=== PATIENT | male | born 1960 | race Hispanic/Latino ===

== ENCOUNTER 2019-09-09 01:58 | Emergency (ER) | payer MEDICARE ==
[2019-09-09] MEDS ORDERED: MAGNESIUM SULFATE 2 GM/50 ML BAG IV ONE (02:02)
[2019-09-09] MEDS ORDERED: IPRATROPIUM 0.02% NEBU 2.5 ML IH ONE (02:02)
[2019-09-09] MEDS ORDERED: ALBUTEROL 2.5 MG/3 ML NEBU IH ONE (02:02)
--- NOTE | 2019-09-09 02:07 | Emergency Department Report ---
HPI - General Time Seen by Provider: 09/09/19 02:01 - HPI HPI: Room 1 The patient is a 58-year-old male present with a chief complaint of shortness of breath. The patient has a history of COPD and states approximately 1-2 hours prior to arrival he developed shortness of breath. Patient denies cough, rhinorrhea or fever. EMS found the patient with increased work of breathing and started him on CPAP. Patient was administered Solu-Medrol 125 mg IV x1. Patient denies chest pain ED Past Medical Hx - Past Medical History Hx Liver Disease: Yes (hepatitis B & C) Hx Arthritis: Yes Hx COPD: Yes (No home O2) Additional medical history: pneumonia - Surgical History Hx Appendectomy: Yes Additional Surgical History: back surgery x 3. spinal cord stimulator. Tonsillectomy - Family History Family history: no significant - Social History Smoking Status: Former Smoker (None x3 years) Substance Use Type: None (Denies illicit drug use) - Medications Home Medications: Home Medications Medication Instructions Recorded Confirmed Last Taken Type HYDROcodone/ACETAMINOPHEN 1 tab PO QID PRN 06/25/13 06/20/15 06/24/13 21:00 History [Hydrocodon-Acetaminophn 10-325] Ibuprofen [Motrin] 800 mg PO BID 06/25/13 06/20/15 Unknown History Morphine ER [Ms Contin ER] 15 mg PO QDAY 06/25/13 06/20/15 06/25/13 07:30 Hi story Albuterol INH(or & Nicu Only) 2 puff IH Q4H #1 inha 06/20/15 Unknown Rx [ProAir HFA Inhaler] Amlodipine Besylate [Norvasc] 2.5 mg PO DAILY 06/20/15 06/20/15 Unknown History HYDROcodone/APAP 10-325 [[place] 1 each PO Q6HR PRN #20 tablet 06/20/15 Unknown Rx 10/325] levoFLOXacin [Levaquin] 750 mg PO QDAY #7 tablet 06/20/15 Unknown Rx predniSONE [Deltasone] 40 mg PO QDAY #10 tab 06/20/15 Unknown Rx Prednisone [predniSONE 10 mg 10 mg PO .TAPER #1 tab.ds.pk 09/09/19 Unknown Rx (6-Day Pack, 21 Tabs)] ED Review of Systems ROS: Stated complaint: BE Other details as noted in HPI Constitutional: denies: fever Eyes: denies: eye pain ENT: denies: throat pain Respiratory: shortness of breath. denies: cough Cardiovascular: denies: chest pain Endocrine: no symptoms reported Gastrointestinal: denies: abdominal pain Genitourinary: denies: dysuria Musculoskeletal: denies: back pain Neurological: denies: headache Physical Exam - Physical Exam Physical Exam: GENERAL: The patient is well-developed well-nourished male sitting on stretcher with CPAP in place exhibiting increased work of breathing. [] HEENT: Normocephalic. Atraumatic. Extraocular motions are intact. Patient has moist mucous membranes. NECK: Supple. Trachea midline CHEST/LUNGS: Diminished diffusely. Increased work of breathing. CPAP in place HEART/CARDIOVASCULAR: Regular. There is tachycardia. There is no gallop rub or murmur. ABDOMEN: Abdomen is soft, nontender. Patient has normal bowel sounds. There is no abdominal distention. SKIN: There is no rash. There is no diaphoresis. NEURO: The patient is awake, alert, and oriented. The patient is cooperative. The patient has normal speech MUSCULOSKELETAL: There is no evidence of acute injury. ED Course - Reevaluation(s) Reevaluation #1: 09/09/19 03:25 Patient states he feels back to his normal self and wants to have the BiPAP removed. BiPAP removed per respiratory therapy will observe patient 09/09/19 04:10 Patient states he still feels back to his normal self and comfortable going home. SPO2 97% on room air. Patient states he does not need a refill of albuterol ED Medical Decision Making - Lab Data Result diagrams: 09/09/19 02:22 09/09/19 02:22 - EKG Data -: EKG Interpreted by Me EKG shows normal: sinus rhythm Rate: tachycardia (108 bpm) - EKG Data When compared to previous EKG there are: previous EKG unavailable Interpretation: nonspecific ST-T wave malika (T wave inversion/biphasic T waves in lead V2) - Radiology Data Radiology results: report reviewed (Chest x-ray), image reviewed (Chest x-ray) interpreted by me: Chest x-ray-no definite focal infiltrates, no pneumothorax Findings [facility] [address] [place] [address] XRay Report Signed Patient: CHRIS DUEÑAS MR#: [id number] : 1960 Acct:[id number] Age/Sex: 58 / M ADM Date: 09/09/19 Loc: ED Attending Dr: Ordering Physician: BERNARDO SWENSON MD Date of Service: 09/09/19 Procedure(s): XR chest 1V ap Accession Number(s): [id number] cc: BERNARDO SWENSON MD Fluoro Time In Minutes: CHEST 1 VIEW INDICATION: Shortness of breath. COMPARISON: 06/20/2015 FINDINGS: SUPPORT DEVICES: None. HEART / MEDIASTINUM: No significant abnormality. LUNGS / PLEURA: Increased lung volumes. No significant pulmonary or pleural abnormality. No pneumothorax. ADDITIONAL FINDINGS: IMPRESSION: 1. No acute cardiopulmonary disease COPD Signer Name: Alfonso Argueta MD Signed: 3:34 AM Workstation Name: [id number] Transcribed By: WG Dictated By: Alfonso Argueta MD Electronically Authenticated By: Alfonso Argueta MD Signed Date/Time: 09/09/19333 DD/ 2 TD/TT: - Differential Diagnosis COPD exacerbation Critical care attestation.: If time is entered above; I have spent that time in minutes in the direct care of this critically ill patient, excluding procedure time. ED Disposition Clinical Impression: Shortness of breath, COPD exacerbation Disposition: DC-01 TO HOME OR SELFCARE Is pt being admited?: No Does the pt Need Aspirin: No Condition: Stable Instructions: Chronic Obstructive Pulmonary Disease (ED) Additional Instructions: Return to the emergency department should you develop worsening symptoms, inability to tolerate food or liquids, high fever or any other concerns Prescriptions: Prednisone [predniSONE 10 mg (6-Day Pack, 21 Tabs)] 10 mg PO .TAPER #1 tab.ds.pk Referrals: RICARDO JURADO MD [Staff Physician] - 2-3 Days (Dr. Jurado is a examination scorer. Please follow-up with him for further evaluation) Time of Disposition: 04:12
[2019-09-09 03:09] LABS: Basophils # (Auto) 0.1 K/mm3 (0.0-0.1); Basophils % (Auto) 0.6 % (0.0-1.8); Eosinophils # (Auto) 0.4 K/mm3 (0.0-0.4); Hematocrit 41.8 % (35.5-45.6); Hemoglobin 14.5 gm/dl (11.8-15.2); Lymphocytes # (Auto) 3.7 K/mm3 (1.2-5.4); Lymphocytes % (Auto) 29.7 % (13.4-35.0); Mean Corpuscular HGB Conc 35 % (32-34); Mean Corpuscular Volume 90 fl (84-94); Monocytes # (Auto) 1.2 K/mm3 (0.0-0.8); Monocytes % (Auto) 9.4 % (0.0-7.3); Platelet Count 341 K/mm3 (140-440); Red Blood Count 4.66 M/mm3 (3.65-5.03); Red Cell Distribution Width 13.4 % (13.2-15.2)
--- NOTE | 2019-09-09 03:38 | XRay Report ---
CHEST 1 VIEW INDICATION: Shortness of breath. COMPARISON: 06/20/2015 FINDINGS: SUPPORT DEVICES: None. HEART / MEDIASTINUM: No significant abnormality. LUNGS / PLEURA: Increased lung volumes. No significant pulmonary or pleural abnormality. No pneumotho rax. ADDITIONAL FINDINGS: IMPRESSION: 1. No acute cardiopulmonary disease COPD Signer Name: Alfonso Argueta MD Signed: 09/09/2019 3:34 AM Workstation Name: [id number]
[2019-09-09 04:03] LABS: Creatine Kinase MB 3.9 ng/mL (0.0-4.0)
[2019-09-09 04:04] LABS: BUN/Creatinine Ratio 24; Blood Urea Nitrogen 22 mg/dL (9-20); Calcium 9.4 mg/dL (8.4-10.2); Hemolysis Index 3
[2019-09-09 05:02] VITALS: BP 134/86
== END 2019-09-09 05:17 | disposition home or self-care (01) ==
LOC: ED 01:58
DX: J44.1 Chronic obstructive pulmonary disease with (acute) exacerbation (principal); R06.02 Shortness of breath; R06.00 Dyspnea, unspecified; M19.90 Unspecified osteoarthritis, unspecified site; Z90.49 Acquired absence of other specified parts of digestive tract; Z79.899 Other long term (current) drug therapy; Z87.891 Personal history of nicotine dependence; Z88.6 Allergy status to analgesic agent; Z88.2 Allergy status to sulfonamides
CPT/HCPCS: 36415; 71045; 80048; 82550; 82553; 83880; 84484; 85025; 93005; 93010; 94644; 96365; 99284; J3475

== ENCOUNTER 2019-09-26 02:40 | Emergency (ER) | payer MEDICARE ==
[2019-09-26] MEDS ORDERED: ASPIRIN 325 MG TAB PO ONE (02:46)
[2019-09-26] MEDS ORDERED: methylPREDNISolone Sod Succinate 125 MG/2 ML INJ IV ONE (03:02)
[2019-09-26] MEDS ORDERED: IPRATROPIUM/ALBUTEROL SULFATE 3 ML AMPUL.NEB IH ONE (03:02)
--- NOTE | 2019-09-26 03:05 | Emergency Department Report ---
ED Shortness of Breath HPI - General Chief Complaint: Dyspnea/Respdistress Stated Complaint: BE Time Seen by Provider: 09/26/19 03:02 Source: patient Mode of arrival: Ambulatory Limitations: No Limitations - History of Present Illness Initial Comments: Patient is a 59-year-old male that presents emergency room with complaints of shortness of breath and difficulty breathing. Patient states that he symptoms started at 2 AM. Patient states he went to the fire department and given some oxygen and have albuterol treatment and he feels little bit better. Patient states he came here to get some more treatment and some IV steroids. Patient states he took 4 albuterol at home. Patient states he is COPD is very sensitive to the pollen count. Patient states he is having bilateral chest pressure. Patient states his chest pressure is a 2 out of 10. Patient states is better with rest and worse with deep breathing. Patient denies fever and chills. Patient states his shortness of breath is better with rest and worse with exertion. Patient came here by private vehicle. Patient denies recent travel. Patient denies recent international travel. Patient denies exposure to the novel coronavirus. Patient denies sick contacts. Patient denies fever and chills. . Patient denies diarrhea. Patient denies coming in contact with anybody with symptoms of the novel coronavirus. MD Complaint: shortness of breath, cough, chest pain -: Sudden Severity: severe Consistency: constant Improves With: oxygen, rest, bronchodilators Worsens With: lying flat, exertion, coughing, inspiration Known History Of: COPD Context: allergen exposure Associated Symptoms: chest pain, cough Treatments Prior to Arrival: oxygen, bronchodilator - Related Data Home Oxygen Therapy: No Home Medications Medication Instructions Recorded Confirmed Last Taken HYDROcodone/ACETAMINOPHEN 1 tab PO QID PRN 06/25/13 06/20/15 06/24/13 21:00 [Hydrocodon-Acetaminophn 10-325] Ibuprofen [Motrin] 800 mg PO BID 06/25/13 06/20/15 Unknown Morphine ER [Ms Contin ER] 15 mg PO QDAY 06/25/13 06/20/15 06/25/13 07:30 Amlodipine Besylate [Norvasc] 2.5 mg PO DAILY 06/20/15 06/20/15 Unknown Previous Rx's Medication Instructions Recorded Last Taken Type Albuterol INH(or & Nicu Only) 2 puff IH Q4H #1 inha 06/20/15 Unknown Rx [ProAir HFA Inhaler] HYDROcodone/APAP 10-325 [[place] 1 each PO Q6HR PRN #20 tablet 06/20/15 Unknown Rx 10/325] levoFLOXacin [Levaquin] 750 mg PO QDAY #7 tablet 06/20/15 Unknown Rx predniSONE [Deltasone] 40 mg PO QDAY #10 tab 06/20/15 Unknown Rx Prednisone [predniSONE 10 mg 10 mg PO .TAPER #1 tab.ds.pk 09/09/19 Unknown Rx (6-Day Pack, 21 Tabs)] Doxycycline Hyclate [Doxycycline 100 mg PO Q12HR 10 Days #20 tab 09/26/19 Unknown Rx Hyclate TAB] methylPREDNISolone [Medrol 4MG 4 mg PO DAILY 6 Days #1 tab.ds.pk 09/26/19 Unknown Rx DOSEPAK (21 tabs)] Allergies Allergy/AdvReac Type Severity Reaction Status Date / Time codeine Allergy Nausea Verified 06/25/13 13:09 Sulfa (Sulfonamide Allergy Hives Verified 06/25/13 13:09 Antibiotics) ED Review of Systems ROS: Stated complaint: BE Other details as noted in HPI Constitutional: denies: chills, fever Eyes: denies: eye pain, eye discharge, vision change ENT: denies: ear pain, throat pain Respiratory: shortness of breath, wheezing. denies: cough Cardiovascular: chest pain. denies: palpitations Endocrine: no symptoms reported Gastrointestinal: denies: abdominal pain, nausea, diarrhea Genitourinary: denies: urgency, dysuria Musculoskeletal: denies: back pain, joint swelling, arthralgia Skin: denies: rash, lesions Neurological: denies: headache, weakness, paresthesias Psychiatric: denies: anxiety, depression Hematological/Lymphatic: denies: easy bleeding, easy bruising ED Past Medical Hx - Past Medical History Previous Medical History?: Yes Hx Liver Disease: Yes (hepatitis B & C) Hx Arthritis: Yes Hx COPD: Yes (No home O2) Additional medical history: pneumonia - Surgical History Past Surgical History?: Yes Hx Appendectomy: Yes Additional Surgical History: back surgery x 3. spinal cord stimulator. Tonsillectomy - Family History Family history: no significant - Social History Smoking Status: Former Smoker Substance Use Type: None - Medications Home Medications: Home Medications Medication Instructions Recorded Confirmed Last Taken Type HYDROcodone/ACETAMINOPHEN 1 tab PO QID PRN 06/25/13 06/20/15 06/24/13 21:00 History [Hydrocodon-Acetaminophn 10-325] Ibuprofen [Motrin] 800 mg PO BID 06/25/13 06/20/15 Unknown History Morphine ER [Ms Contin ER] 15 mg PO QDAY 06/25/13 06/20/15 06/25/13 07:30 History Albuterol INH(or & Nicu Only) 2 puff IH Q4H #1 inha 06/20/15 Unknown Rx [ProAir HFA Inhaler] Amlodipine Besylate [Norvasc] 2.5 mg PO DAILY 06/20/15 06/20/15 Unknown History HYDROcodone/APAP 10-325 [[place] 1 each PO Q6HR PRN #20 tablet 06/20/15 Unknown Rx 10/325] levoFLOXacin [Levaquin] 750 mg PO QDAY #7 tablet 06/20/15 Unknown Rx predniSONE [Deltasone] 40 mg PO QDAY #10 tab 06/20/15 Unknown Rx Prednisone [predniSONE 10 mg 10 mg PO .TAPER #1 tab.ds.pk 09/09/19 Unknown Rx (6-Day Pack, 21 Tabs)] Doxycycline Hyclate [Doxycycline 100 mg PO Q12HR 10 Days #20 tab 09/26/19 Unknown Rx Hyclate TAB] methylPREDNISolone [Medrol 4MG 4 mg PO DAILY 6 Days #1 tab.ds.pk 09/26/19 Unknown Rx DOSEPAK (21 tabs)] ED Physical Exam - General Limitations: No Limitations General appearance: alert, in distress - Head Head exam: Present: atraumatic, normocephalic - Eye Eye exam: Present: normal appearance - ENT ENT exam: Present: mucous membranes moist - Neck Neck exam: Present: normal inspection - Respiratory Respiratory exam: Present: respiratory distress, wheezes, chest wall tenderness, accessory muscle use - Cardiovascular Cardiovascular Exam: Present: regular rate, normal rhythm. Absent: systolic mu rmur, diastolic murmur, rubs, gallop - GI/Abdominal GI/Abdominal exam: Present: soft, normal bowel sounds. Absent: distended, tenderness - Rectal Rectal exam: Present: deferred - Extremities Exam Extremities exam: Present: normal inspection - Back Exam Back exam: Present: normal inspection - Neurological Exam Neurological exam: Present: alert, oriented X3 - Psychiatric Psychiatric exam: Present: normal affect, normal mood - Skin Skin exam: Present: warm, dry, intact, normal color. Absent: rash ED Course Vital Signs 09/26/19 09/26/19 09/26/19 02:43 03:04 03:16 Temperature 97.5 F L Pulse Rate 109 H Respiratory 18 Rate Blood Pressure 144/84 124/75 O2 Sat by Pulse 94 94 94 Oximetry 09/26/19 03:27 Temperature Pulse Rate Respiratory 18 Rate Blood Pressure O2 Sat by Pulse 94 Oximetry - Reevaluation(s) Reevaluation #1: Patient's lung sounds are clear. Patient states he is feeling much better. Patient is not in respiratory distress. Patient appears to be comfortable. Patient speaking in full sentences. I discussed all results and clinical findings with patient. I discussed plan of care with patient. Patient agrees with plan of care. Patient is stable for discharge. Patient will be discharged home. Patient given discharge instructions. Patient voiced understanding of discharge instructions. 09/26/19 04:28 ED Medical Decision Making - Lab Data Result diagrams: 09/26/19 03:08 09/26/19 03:08 - Radiology Data Radiology results: report reviewed, image reviewed CHEST 1 VIEW INDICATION / CLINICAL INFORMATION: Chest Pain. COMPARISON: 09/09/2019 FINDINGS: SUPPORT DEVICES: None. HEART / MEDIASTINUM: No significant abnormality. LUNGS / PLEURA: Changes of COPD No pneumothorax. ADDITIONAL FINDINGS: No significant additional findings. IMPRESSION: Changes of COPD. No acute disease or interval change from 09/09/2019 - Medical Decision Making Patient is a 59-year-old male that presents emergency room with complaints of wheezing and shortness of breath. Patient states that the pollen has irritated his lungs. Patient was given a DuoNeb and Solu-Medrol and responded well. Patient is asymptomatic. Patient states he felt much better after therapy. Patient stable for discharge. Patient discharged home. Patient's chest x-ray is negative for acute finding. Patient's labs essentially unremarkable. Pa zaki given antibiotics and steroids. - Differential Diagnosis COPD exacerbation, shortness of breath, allergen exposure, wheezing. Critical care attestation.: If time is entered above; I have spent that time in minutes in the direct care of this critically ill patient, excluding procedure time. ED Disposition Clinical Impression: COPD exacerbation, SOB (shortness of breath) Disposition: DC-01 TO HOME OR SELFCARE Is pt being admited?: No Does the pt Need Aspirin: No Condition: Stable Instructions: Chronic Obstructive Pulmonary Disease (ED), Chronic Bronchitis (ED) Additional Instructions: Patient to follow-up with primary care in 2 to 3 days. Patient to follow-up with lining cementer in 2 to 3 days. Patient to rest. Patient to increase water. Patient to avoid strenuous exercise or heavy lifting until cleared by lining cementer. Patient to take Tylenol or ibuprofen as needed for pain. Patient to take meds as directed. Patient to return to the ER if condition worsens, changes or new symptoms arise. Prescriptions: Doxycycline Hyclate [Doxycycline Hyclate TAB] 100 mg PO Q12HR 10 Days #20 tab methylPREDNISolone [Medrol 4MG DOSEPAK (21 tabs)] 4 mg PO DAILY 6 Days #1 tab.ds.pk Referrals: PRIMARY CARE, [Primary Care Provider] - 2-3 Days ERNST SANCHEZ MD [Staff Physician] - 2-3 Days Time of Disposition: 04:31
--- NOTE | 2019-09-26 03:31 | XRay Report ---
CHEST 1 VIEW INDICATION / CLINICAL INFORMATION: Chest Pain. COMPARISON: 09/09/2019 FINDINGS: SUPPORT DEVICES: None. HEART / MEDIASTINUM: No significant abnormality. LUNGS / PLEURA: Changes of COPD No pneumothorax. ADDITIONAL FINDINGS: No significant additional findings. IMPRESSION: Changes of COPD. No acute disease or interval change from 09/09/2019 Signer Name: Lm Graf MD FACR Signed: 09/26/2019 3:27 AM Workstation Name: [id number]
[2019-09-26 03:47] LABS: Basophils # (Auto) 0.1 K/mm3 (0.0-0.1); Basophils % (Auto) 0.5 % (0.0-1.8); Eosinophils # (Auto) 0.3 K/mm3 (0.0-0.4); Eosinophils % (Auto) 2.6 % (0.0-4.3); Hematocrit 42.8 % (35.5-45.6); Hemoglobin 14.6 gm/dl (11.8-15.2); Lymphocytes # (Auto) 2.3 K/mm3 (1.2-5.4); Lymphocytes % (Auto) 19.3 % (13.4-35.0); Mean Corpuscular HGB Conc 34 % (32-34); Mean Corpuscular Volume 90 fl (84-94); Monocytes # (Auto) 1.1 K/mm3 (0.0-0.8); Monocytes % (Auto) 8.9 % (0.0-7.3); Platelet Count 290 K/mm3 (140-440); Red Blood Count 4.74 M/mm3 (3.65-5.03); Red Cell Distribution Width 13.7 % (13.2-15.2)
[2019-09-26 04:04] LABS: BUN/Creatinine Ratio 26; Blood Urea Nitrogen 18 mg/dL (9-20); Calcium 9.2 mg/dL (8.4-10.2); Hemolysis Index 17
[2019-09-26 05:16] VITALS: BP 138/77
== END 2019-09-26 04:45 | disposition home or self-care (01) ==
LOC: ED 02:40
DX: J44.1 Chronic obstructive pulmonary disease with (acute) exacerbation (principal); M19.90 Unspecified osteoarthritis, unspecified site; Z87.891 Personal history of nicotine dependence
CPT/HCPCS: 36415; 71045; 80048; 84484; 85025; 93005; 93010; 94640; 96374; 99284; J2930; 94644